=== PATIENT | female | born 1965 | race Two or more races ===

== ENCOUNTER 2018-10-22 12:26 | Emergency (ER) | payer OTHER ==
[~2018-10-22] VITALS: Ht 162.6 cm; Wt 81.6 kg
[2018-10-22] MEDS ORDERED: COZAAR50 MG PO (12:41)
[2018-10-22] MEDS ORDERED: LEVOTHYROXINE25 MCG PO (12:41)
== END 2018-10-22 14:02 | disposition home or self-care (01) ==
LOC: ER 12:26
DX: G43.909 Migraine, unspecified, not intractable, without status migrainosus (principal)